=== PATIENT | male | born 1970 | race Caucasian/White ===

== ENCOUNTER 2016-06-03 16:15 | Emergency (ER) | payer OTHER ==
[~2016-06-03] VITALS: Ht 167.6 cm; Wt 83.5 kg
--- NOTE | 2016-06-03 16:25 | NUR ---
placed in hallway
[2016-06-03 16:27] VITALS: BP 126/81; PULSE 89; RESP 14; TEMP 97.3; O2SAT 100
--- NOTE | 2016-06-03 16:27 | NUR ---
ER at bedside examining patient.
[2016-06-03] MEDS ORDERED: DIPH-TET-PERTUS Vaccine 0.5 ML VIAL (ADACEL) IM ONE (16:30)
[2016-06-03] MEDS ORDERED: LIDOCAINE 1% 10 MG/ML, 20 ML MDV IJ ONE (16:30)
[2016-06-03] MEDS ORDERED: BACITRACIN 1 GM OINT TP ONE (16:30)
--- NOTE | 2016-06-03 16:50 | NUR ---
Pt brought in by co-workers in stable condition. Pt c/o left finger pain 8/10 s/p drill through left middle and 4th finger. Pt present pale, pt stated that he does not do well w/ the sight of blood. Pt denies any medical hx. No acute distress noted at this time, will continue to monitor
[2016-06-03] MEDS ORDERED: cefTRIAXone 1 GM in LIDOCAINE 1%, 20 ML MDV 2.1 ML IM ONE (17:00)
--- NOTE | 2016-06-03 17:35 | NUR ---
Dr. Muhammad in [facility] suturing patient
[2016-06-03 18:10] VITALS: BP 126/81; PULSE 89; RESP 14; TEMP 97.3; O2SAT 100
--- NOTE | 2016-06-03 18:10 | NUR ---
Patient given written and verbal discharge instructions and verbalizes understanding. ER MD DR. BUNCH discussed with patient the results and treatment provided. Given copies of tests performed in ER. Patient in stable condition. ID arm band removed. Rx of AUGMENTIN, MORTIN AND NORCO 5 given. Patient educated on pain management and to follow up with PMD. Pain Scale 2/10. Opportunity for questions provided and answered.
== END 2016-06-03 18:10 | disposition home or self-care (01) ==
LOC: SED 16:15
DX: S68.123A Partial traumatic metacarpophalangeal amputation of left middle finger, initial encounter (principal); X58.XXXA Exposure to other specified factors, initial encounter; Y93.89 Activity, other specified; Y92.89 Other specified places as the place of occurrence of the external cause; Y99.8 Other external cause status
CPT/HCPCS: 12001; 73130; 90471; 90715; 96372; 99284; J0696; J2001

== ENCOUNTER 2016-06-04 13:16 | Emergency (ER) | payer OTHER ==
[~2016-06-04] VITALS: Ht 167.6 cm; Wt 88.0 kg
[2016-06-04 13:16] VITALS: BP 141/86; PULSE 89; RESP 18; TEMP 98.2; O2SAT 96
[2016-06-04 17:53] VITALS: BP 122/82; PULSE 88; RESP 17; O2SAT 97
== END 2016-06-04 17:55 | disposition home or self-care (01) ==
LOC: SED 13:16
DX: S68.123D Partial traumatic metacarpophalangeal amputation of left middle finger, subsequent encounter (principal); W31.0XXD Contact with mining and earth-drilling machinery, subsequent encounter
CPT/HCPCS: 99283